=== PATIENT | female | born 1955 | race Caucasian/White ===

== ENCOUNTER 2017-07-04 21:41 | Emergency (ER) | payer OTHER, BC ==
[~2017-07-04] VITALS: Ht 170.2 cm; Wt 93.4 kg
[2017-07-04 22:32] LABS: HEMATOCRIT 40.2 % (36.0-46.0); MCH 26.2 PG (29.0-34.0); MCHC 32.3 G/DL (30.0-36.0); PLATELET COUNT 223 K/uL (156-360); RBC DIS.WIDTH-CV 15.9 % (11.8-14.6); RBC DIS.WIDTH-SD 47.1 % (39-53); RED BLOOD COUNT 4.96 M/uL (3.80-5.20); WHITE BLOOD COUNT 8.6 K/uL (4.1-10.2)
[2017-07-04 22:38] LABS: CHLORIDE 105 mEq/L (99-109); SODIUM 141 mEq/L (136-147)
[2017-07-04 22:40] LABS: GLUCOSE 128 mg/dL (70-99)
[2017-07-04 22:43] LABS: CREATININE 0.8 mg/dL (0.6-1.3)
[2017-07-04 22:44] LABS: UREA NITROGEN (BUN) 15 mg/dL (9-23)
[2017-07-04 22:48] LABS: TROP-I INTERPRETATION NEGATIVE; TROPONIN-I < 0.01 ng/mL (0.0-0.30)
[2017-07-04 22:50] LABS: GFR ESTIMATE (CALCULATED) > 59 mL/min/
[2017-07-04 23:10] LABS: PTT 31.1 SEC (25-37)
[2017-07-05 01:05] LABS: TROP-I INTERPRETATION NEGATIVE; TROPONIN-I < 0.01 ng/mL (0.0-0.30)
[2017-07-05 02:32] VITALS: BP 105/72
== END 2017-07-05 02:32 | disposition home or self-care (01) ==
LOC: EME 21:41
PROVIDERS: Emergency Medicine
DX: R07.89 Other chest pain (principal); R06.00 Dyspnea, unspecified; K21.9 Gastro-esophageal reflux disease without esophagitis; Z86.718 Personal history of other venous thrombosis and embolism
CPT/HCPCS: 71046; 71275; 80048; 84484; 85027; 85610; 85730; 93005; 99281; 99285; J3010; J7030